=== PATIENT | male | born 1970 | race Hispanic/Latino ===

== ENCOUNTER 2018-02-08 11:38 | Observation (INO) | payer SELFPAY ==
[2018-02-08] MEDS ORDERED: Benzonatate 100 MG CAP PO PRN (12:53)
[2018-02-08] MEDS ORDERED: Dextrose 5% in Water 1,000 ML IV PRN (12:53)
[2018-02-08] MEDS ORDERED: HumaLOG 300 UNITS/3 ML VIAL SC PRN (12:53)
[2018-02-08] MEDS ORDERED: cloNIDine 0.1 MG TAB PO PRN (12:53)
[2018-02-08] MEDS ORDERED: Ondansetron ODT 4 MG TAB PO PRN (12:53)
[2018-02-08] MEDS ORDERED: traMADol HCl 50 MG TAB PO PRN (12:53)
[2018-02-08] MEDS ORDERED: Acetaminophen 325 MG TAB PO PRN ×2 (12:53)
[2018-02-08] MEDS ORDERED: Diabetic Tussin 200 MG/10 ML UDCUP PO PRN (12:53)
[2018-02-08] MEDS ORDERED: Calcium Carbonate 500 MG ChewTAB PO PRN ×2 (12:53)
[2018-02-08] MEDS ORDERED: Mag-Al 1200 mg/1200 mg/30 ML UDCUP PO PRN ×2 (12:53)
[2018-02-08] MEDS ORDERED: Bisacodyl 5 MG TAB PO PRN ×2 (12:53)
[2018-02-08] MEDS ORDERED: Dextrose 50% Abboject 50 ML SYRINGE SLOW IVP PRN (12:53)
[2018-02-08] MEDS ORDERED: hydrALAZINE 20 MG/ML VIAL SLOW IVP PRN (12:53)
[2018-02-08] MEDS ORDERED: Senokot 8.6 MG TAB PO PRN ×2 (12:53)
[2018-02-08] MEDS ORDERED: Nitroglycerin 0.4 MG TAB (25 Tab Bottle) SL PRN (12:53)
[2018-02-08] MEDS ORDERED: Ondansetron HCl/PF 4 MG/2 ML Vial IVP PRN (12:53)
[2018-02-08 12:54] VITALS: BMI 28.7
[2018-02-08 13:38] LABS: Hemoglobin A1c 14.4 % (4.0-6.0)
[2018-02-08] MEDS: Sodium Chloride 0.9% 1,000 ML IV SCH (13:39)
[2018-02-08 13:44] LABS: Anion Gap 14 mmol/L (10-20); BUN (Urea Nitrogen) 9 mg/dL (8.9-20.6); Calc. Creatinine Clearance 129 mL/min (70-130); Calcium 8.5 mg/dL (7.8-10.44); Carbon Dioxide 18 mmol/L (22-29); Chloride 104 mmol/L (98-107); Estimated GFR-MDRD Greater than 90; Glucose 323 mg/dL (70-105); Potassium 3.9 mmol/L (3.5-5.1); Sodium 132 mmol/L (136-145)
--- NOTE | 2018-02-08 16:30 | HP ---
DATE OF ADMISSION: 02/08/2018 PRIMARY CARE PHYSICIAN: None. CHIEF COMPLAINT: Excessive thirst and excessive urination. HISTORY OF PRESENT ILLNESS: Mr. Nair is a very pleasant 48-year-old male who has no signif icant past medical history as he has not seen a physician in multiple years, came to the emergency ro with complaints of generalized malaise, fatigue and polyuria and polydipsia as above. He has no r ecent illnesses. He denies any weight gain or weight loss. No nausea, vomiting, abdominal pain or d iarrhea. No chest pain or shortness of breath. He does not take any medications. He does not smoke and does not drink alcohol. He has no history of drug abuse either. He initially presented to [facility] emergency room where he underwent a general evaluation, which rev ealed hyperglycemia with a blood sugar of over 500 up to 600. Other than that, his lab work was unre markable. He had mild lactic acidosis with lactic acid of 2.7, otherwise unremarkable. VBG was with in normal limits and he was hemodynamically stable. He is now being admitted to our facility with ne w diagnosis of diabetes mellitus. Case has been discussed with the transferring physician, Dr. Jolly from [facility]. PAST MEDICAL HISTORY: None. PAST SURGICAL HISTORY: None. Reviewed with the patient. SOCIAL HISTORY: He is and lives with his family. No history of drug, tobacco or alcohol abu se. FAMILY HISTORY: Significant for diabetes mellitus in his mother. No significant family history of c oronary artery disease or stroke as far as the patient could tell. CURRENT MEDICATIONS: None. ALLERGIES: None. REVIEW OF SYSTEMS: A 12-point review of systems was done, which is negative except for those mention ed in the history and physical. LABORATORY DATA: Labs are reviewed with the transferring physician from [facility]. Hemoglobin 17 .3, hematocrit 51. LFTs, AST 49, ALT 74, alkaline phosphatase 191, T bili 0.9. Serum chemistries, s odium 133, potassium 4.6, bicarbonate 26, chloride 94, BUN 13, creatinine 0.7, blood sugar 560, lacti c acid 2.7. Repeat labs here are essentially the same with a blood sugar of 323. Hemoglobin A1c was checked and was 14.4. Beta hydroxybutyrate is 0.53, but anion gap is normal at 14. PHYSICAL EXAMINATION: VITAL SIGNS: Most recent temperature 97.4, heart rate 56, respirations 16, saturating 98% on room ai r, blood pressure 130/84. GENERAL: No acute distress, awake, alert, oriented x3. HEENT: Mucous membranes are slightly dry. No oropharyngeal exudate or erythema. Head is normocepha lic, atraumatic. Pupils equal and reactive to light and accommodation. Extraocular movement intact. NECK: Supple without any lymphadenopathy, JVD or bruit. CHEST: Clear to auscultation without any wheezing, rales or rhonchi. Rate and rhythm is regular wit hout any murmur, rubs or gallops. ABDOMEN: Soft, nontender, nondistended with positive bowel sounds. EXTREMITIES: Free of any cyanosis, clubbing or edema. NEUROLOGIC: Nonfocal. SKIN: Free of any rashes or bruises, feel warm and dry to touch. PSYCHIATRIC: Normal affect. IMPRESSION AND PLAN: 1. Hyperglycemia. This is secondary to new diagnosis of diabetes mellitus. Blood sugar is under be tter control now. We will continue with insulin sliding scale as below. 2. New diagnosis of diabetes mellitus. Hemoglobin is uncontrolled. He will be started on metformin b.i.d. and we will start him on insulin sliding scale with frequent Accu-Cheks. We will consult yudelka victor and provide him a diabetic education as well. We will check a urinalysis to check for any pro teinuria or glucosuria. 3. Dehydration secondary to new diagnosis of diabetes mellitus. He will be started on normal saline and we will recheck his blood work in the morning. 4. Health maintenance. Check lipid panel. 5. Deep venous thrombosis and gastrointestinal prophylaxis. 6. Add walking program. 7. Add p.r.n. medication orders. DISPOSITION: Mr. Nair is currently being admitted to the hospital under observation status for new diagnosis of diabetes mellitus and hyperglycemia. Further management will depend upon his clinical c ourse.
[2018-02-08] MEDS: metFORMIN 500 MG TAB PO SCH (17:25)
[2018-02-08] MEDS: HumaLOG 300 UNITS/3 ML VIAL SC PRN (17:25)
[2018-02-09] LABS: Bilirubin Negative (Negative); Blood, Urine Negative (Negative); Clarity CLEAR (Clear); Glucose, Urine (Dipstick) >=1000 mg/dL (Negative); Leukocyte Negative (Negative); Nitrite Negative (Negative); Protein, Urine (Dipstick) Negative (Neg-Trace); Specific Gravity, Urine 1.031 (1.002-1.036); pH, Urine 7.5 (5.0-9.0)
[2018-02-09 00:07] LABS: Bacteria/HPF None Seen HPF (None Seen); Hyaline Casts/LPF 0-3 HYALINE CAST LPF (0-3 Hyaline); RBC/HPF 0-3 HPF (0-3); Squamous Epithelial None Seen HPF (0-3); WBC/HPF None Seen HPF (0-3)
[2018-02-09] MEDS: Sodium Chloride 0.9% 1,000 ML IV SCH ×2 (01:47→09:59)
[2018-02-09 06:00] LABS: #Eosinphils 0.3 thou/uL (0.0-0.7); #Lymphocytes 1.5 thou/uL (1.20-3.40); #Monocytes 0.4 thou/uL (0.11-0.59); #Neutrophils 3.8 thou/uL (1.40-6.50); %Basophils 0.5 % (0.0-1.0); %Eosinophils 4.5 % (0.0-10.0); %Lymphocytes 24.7 % (21.0-51.0); %Monocytes 6.7 % (0.0-10.0); %Neutrophils 63.6 % (42.0-75.0); Hemoglobin 14.5 g/dL (14.0-18.0); Mean Corpuscular HGB CONC 35.4 g/dL (32.0-36.0); Mean Corpuscular Hemoglobin 33.3 pg (27.0-31.0); Mean Corpuscular Volume 94.1 fL (78.0-98.0); Mean Platelet Volume 10.2 fL (7.4-10.4); Platelet Count 153 thou/uL (130-400); RBC Distribution Width 11.8 % (11.5-14.5); Red Blood Cell (RBC) Count 4.35 mill/uL (4.70-6.10)
[2018-02-09 06:13] LABS: Anion Gap 11 mmol/L (10-20); BUN (Urea Nitrogen) 9 mg/dL (8.9-20.6); Calc. Creatinine Clearance 135 mL/min (70-130); Calcium 8.5 mg/dL (7.8-10.44); Carbon Dioxide 23 mmol/L (22-29); Cardiac Risk 4.2 (Less than 4.5); Chloride 103 mmol/L (98-107); Cholesterol 137 mg/dl (< 200 Desired); Estimated GFR-MDRD Greater than 90; Glucose 306 mg/dL (70-105); HDL Cholesterol 33 mg/dL (>60 Neg Risk); LDL Cholesterol, Calculated 58 mg/dL; Potassium 3.6 mmol/L (3.5-5.1); Sodium 133 mmol/L (136-145); Triglycerides 229 mg/dL (Less than 150)
[2018-02-09] MEDS: HumaLOG 300 UNITS/3 ML VIAL SC PRN (06:13)
[2018-02-09 08:10] VITALS: BP 115/71; TEMP 97.7
[2018-02-09] MEDS: metFORMIN 500 MG TAB PO SCH (08:49)
[2018-02-09] MEDS ORDERED: Enoxaparin Sodium 40 MG/0.4 ML SYRINGE SC SCH (09:00)
--- NOTE | 2018-02-09 23:43 | DIS ---
DATE OF ADMISSION: 02/08/2018 DATE OF DISCHARGE: 02/09/2018 CONDITION AT THE TIME OF DISCHARGE: Stable and improved. DISCHARGE DISPOSITION: Home. PRIMARY CARE PHYSICIAN: None. The patient is given referral to [facility]. DISCHARGE DIAGNOSES: 1. Hyperglycemia. 2. New diagnosis of diabetes mellitus. 3. Dyslipidemia. CONSULTATIONS: None. PROCEDURES DONE: None. HISTORY OF PRESENT ILLNESS: Mr. Nair is a very pleasant 48-year-old male without any histo ry of any illnesses, who presented to the emergency room at [facility] with complaints of polyuria, polydipsia, fatigue, and generalized weakness. He was found to be significantly hyperglycemic witho ut any evidence of ketoacidosis. He was admitted for further evaluation and care. HOSPITAL COURSE: The patient's hemoglobin A1c was checked and was found to be elevated at 14.4. His blood sugar improved from 500-600 to 200 range. Lipid panel was checked and he has mild elevation o f triglycerides to 229. Toxicology showed beta hydroxybutyrate of 0.53, but serum chemistries were u nremarkable with regards to DKA protocol. He did not have any anion gap or acidosis. He was started on metformin in the hospital and diabetic education and teaching was provided. Dietshin stratton was consulted. He was given prescription for the metformin and instruction to follow with a [facility] physician. He was given prescription for glucometer, etc. All questions were answered and discharge plan was discussed with the patient, who verbalized understanding. Family was at the [facility] as well. He was seen and examined prior to discharge. PHYSICAL EXAMINATION: This morning, VITAL SIGNS: Stable. Blood pressure 115/71, heart rate 61, saturating 99% on room air. GENERAL: In no acute distress, awake, alert, oriented x3. CHEST: Clear to auscultation without any wheezing, rales, or rhonchi. Rhythm is regular without any murmurs, rubs, or gallops. LABORATORY DATA: Hemoglobin A1c 14.4, blood sugar 276, total cholesterol 137, LDL 58, HDL 33. Extensive lifestyle modification and adherence with diabetic diet is provided and the patient seems r eceptive at this time.
== END 2018-02-09 11:50 | disposition home or self-care (01) ==
LOC: 2SW 11:38 → INTOOBSV 11:38
PROVIDERS: ADMIT Internal Medicine; ATTEND Internal Medicine
DX: E11.65 Type 2 diabetes mellitus with hyperglycemia (principal); E86.0 Dehydration; E78.5 Hyperlipidemia, unspecified
CPT/HCPCS: 36415; 36416; 80048; 80061; 81001; 82010; 83036; 85025; 96360; 96361; 96372; A4216; G0378; J1650